=== PATIENT | female | born 1980 | race Caucasian/White ===

== ENCOUNTER 2024-12-07 14:32 | Emergency (ER) | payer OTHER ==
[~2024-12-07] VITALS: Ht 170.2 cm; Wt 128.4 kg
[2024-12-07] MEDS: KETOROLAC TROMETHAMINE 30 MG/ML VIAL IM STA (16:23)
[2024-12-07] MEDS: ORPHENADRINE CITRATE 30 MG/ML VIAL IM ONE (16:23)
[2024-12-07] MEDS: ONDANSETRON HCL 4 MG ORAL DISINTEGRATING TAB PO ONE (16:26)
[2024-12-07] MEDS ORDERED: METHOCARBAMOL750 MG PO (17:08)
[2024-12-07 17:46] VITALS: PULSE 88; RESP 16; TEMP 97.8; O2SAT 100
== END 2024-12-07 17:46 | disposition home or self-care (01) ==
LOC: ER 15:11
DX: M54.50 Low back pain, unspecified (principal); M62.830 Muscle spasm of back; F17.210 Nicotine dependence, cigarettes, uncomplicated
CPT/HCPCS: 99283; J1885; J2360; Q0162